=== PATIENT | male | born 1985 | race Caucasian/White ===

== ENCOUNTER 2021-04-25 14:54 | Inpatient (IN) | payer OTHER ==
[~2021-04-25] VITALS: Ht 180.3 cm; Wt 240.0 kg
[2021-04-25 16:21] LABS: HEMOGLOBIN 12.1 g/dl (13.5-17.5); MEAN CORPUSCULAR HEMOGLOBIN 26.7 pg (27.0-33.0); MEAN CORPUSCULAR HGB CONC 32.7 g/dl (32.0-36.5); MEAN CORPUSCULAR VOLUME 81.7 fl (80.0-96.0); PLATELET COUNT, AUTOMATED 214 10^3/uL (150-450); RED BLOOD COUNT 4.53 10^6/uL (4.30-6.10); WHITE BLOOD COUNT 6.5 10^3/uL (4.0-10.0)
[2021-04-25 16:36] LABS: AMPHETAMINES LEVEL URINE NEGATIVE (NEGATIVE); BARBITURATES URINE NEGATIVE (NEGATIVE); BENZODIAZEPINES URINE NEGATIVE (NEGATIVE); CANNABINOIDS URINE NEGATIVE (NEGATIVE); COCAINE METABOLITE URINE NEGATIVE (NEGATIVE); METHADONE URINE NEGATIVE (NEGATIVE); OPIATES URINE NEGATIVE (NEGATIVE); PHENCYCLIDINE URINE NEGATIVE (NEGATIVE)
[2021-04-25 16:58] LABS: ACETAMINOPHEN LEVEL < 2.0 UG/ML (10.0-30.0); ALBUMIN 3.7 GM/DL (3.2-5.2); ALT/SGPT 40 U/L (12-78); BILIRUBIN,DIRECT 0.1 MG/DL (0.0-0.2); BILIRUBIN,TOTAL 0.5 MG/DL (0.2-1.0); BLOOD UREA NITROGEN 22 MG/DL (7-18); CALCIUM LEVEL 8.4 MG/DL (8.5-10.1); CARBON DIOXIDE LEVEL 27 MEQ/L (21-32); CHLORIDE LEVEL 106 MEQ/L (98-107); CREATININE FOR GFR 1.28 MG/DL (0.70-1.30); ETHYL ALCOHOL (ETHANOL) 0.003 % (0.000-0.010); GLOMERULAR FILTRATION RATE > 60.0 (>60); GLUCOSE, FASTING 94 MG/DL (70-100); POTASSIUM SERUM 4.1 MEQ/L (3.5-5.1); SALICYLATE LEVEL < 1.7 MG/DL (5.0-30.0); SODIUM LEVEL 140 MEQ/L (136-145); TOTAL PROTEIN 6.5 GM/DL (6.4-8.2)
[2021-04-26] MEDS ORDERED: HOME MED LIST COMPLETE! XX SCH (01:55)
[2021-04-26 02:10] LABS: RSV AMPLIFICATION NEGATIVE (NEGATIVE)
[2021-04-26] MEDS ORDERED: MOM 30ML SUSPENSION UDC PO PRN (02:15)
[2021-04-26] MEDS ORDERED: hydrOXYzine 10 MG TAB PO PRN (02:15)
[2021-04-26] MEDS ORDERED: MAALOX 30 ML SUSP *UDC PO PRN (02:15)
[2021-04-26] MEDS ORDERED: traZODone 50 MG TAB PO PRN (02:15)
[2021-04-26] MEDS ORDERED: ACETAMINOPHEN TAB 650MG DOSE (2X325MG) PO PRN (02:15)
[2021-04-26 04:07] VITALS: BP 130/78
[2021-04-26 06:00] VITALS: BP 176/76
[2021-04-26] MEDS: SERTRALINE HCL 50 MG TAB PO SCH (09:56)
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
[2021-04-26 19:05] VITALS: BP 138/85
[2021-04-27 06:00] VITALS: BP 117/67
[2021-04-27] MEDS: SERTRALINE HCL 50 MG TAB PO SCH (09:48)
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
[2021-04-27 16:10] LABS: BILIRUBIN,DIRECT 0.1 MG/DL (0.0-0.2); BILIRUBIN,TOTAL 0.3 MG/DL (0.2-1.0); CHOLESTEROL RISK RATIO 4.645 (<5); TOTAL PROTEIN 7.3 GM/DL (6.4-8.2)
[2021-04-27 18:35] VITALS: BP 158/75
[2021-04-28 06:15] VITALS: BP 115/64
[2021-04-28] MEDS: SERTRALINE HCL 50 MG TAB PO SCH (08:44)
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
[2021-04-28 16:27] VITALS: BP 135/60
[2021-04-29 05:57] VITALS: BP 126/67
[2021-04-29] MEDS: SERTRALINE HCL 50 MG TAB PO SCH (08:30)
--- NOTE | 2021-04-29 12:41 | MHIPNPDOC ---
[facility] Progress Note Progress Note DATE OF SERVICE: 04/25/21 LATE ENTRY: 04/29/21 This content writer discussed the patient's case with ED staff member, Skyla Zarate, and [facility] because the patient presented with suicidal ideation and multiple risks factors which made him vulnerable. Vital Signs Vital Signs Date Time Temp Pulse Resp B/P (MAP) Pulse Ox O2 Delivery O2 Flow Rate FiO2 04/29/21 08:50 Room Air 04/29/21 05:57 97.2 62 16 126/67 (86) 98 Current Medications Current Medications Medications (Trade) Dose Ordered Sig/Odette Route PRN Reason Start Time Stop Time Status Last Admin Dose Admin Acetaminophen (Tylenol Tab) 650 mg Q6HP PRN PO HEADACHE or MILD DISCOMFORT 04/26/21 02:15 Al Hydrox/Mg Hydrox/Simethicone (Mylanta) 30 ml Q4HP PRN PO HEARTBURN/INDIGESTION 04/26/21 02:15 Home Med (Home Med List Complete!) ASDIRECTED XX 04/26/21 01:55 04/26/21 01:55 DC Hydroxyzine HCl (Atarax) 10 mg Q6HP PRN PO ANXIETY/AGITATION 04/26/21 02:15 Magnesium Hydroxide (Milk Of Magnesia) 30 ml DAILYPRN PRN PO CONSTIPATION 04/26/21 02:15 Sertraline HCl (Zoloft) 50 mg DAILY PO 04/26/21 09:00 04/29/21 08:30 Trazodone HCl (Desyrel) 50 mg QHSP PRN PO INSOMNIA 04/26/21 02:15 Allergies Coded Allergies: No Known Allergies (Unverified , 04/25/21) SUSAN CEVALLOS MD Apr 29, 2021 12:41
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
[2021-04-29 16:09] VITALS: BP 128/60
[2021-04-30 06:46] VITALS: BP 117/69
[2021-04-30] MEDS: SERTRALINE HCL 50 MG TAB PO SCH (08:25)
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
[2021-04-30 16:16] VITALS: BP 134/69
[2021-05-01 07:09] VITALS: BP 114/59
[2021-05-01] MEDS: SERTRALINE HCL 50 MG TAB PO SCH (08:33)
[2021-05-01] MEDS ORDERED: SERT50TA29 PO (09:37)
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
== END 2021-05-01 12:01 | disposition home or self-care (01) | DRG 881 ==
LOC: M ED 14:54 → M ED INP 14:55 → M PSY 04-26 03:50
PROVIDERS: ADMIT Student in an Organized Health Care Education/Training Program; ATTEND Student in an Organized Health Care Education/Training Program
DX: F32.9 Major depressive disorder, single episode, unspecified (principal); Z63.5 Disruption of family by separation and divorce

== ENCOUNTER 2025-05-19 08:15 | Emergency (ER) | payer OTHER ==
[~2025-05-19] VITALS: Ht 180.3 cm; Wt 127.0 kg
[~2025-05-19 08:15] MED LIST: SERT50TA29 PO
[2025-05-19] MEDS ORDERED: IBUPPOW25 (08:38)
[2025-05-19] MEDS ORDERED: METHOCARBAMOL 1,000 MG/10 ML VIAL IM ONE (10:20)
[2025-05-19] MEDS: METHOCARBAMOL 1,000 MG/10 ML VIAL IV ONE (10:44)
[2025-05-19] MEDS: ACETAMINOPHEN 500 MG TAB PO ONE (10:45)
[2025-05-19] MEDS: LIDOCAINE 5% PATCH TD ONE (10:46)
[2025-05-19 11:38] VITALS: BP 139/80; TEMP 97.2; O2SAT 97
[2025-05-19] MEDS ORDERED: MEDR4PAK PO (12:27)
[2025-05-19] MEDS ORDERED: METH-1164 PO (12:27)
[2025-05-19] MEDS ORDERED: LIDO1ADH93 TD (12:27)
[2025-05-20] MEDS ORDERED: BUSP15TA47 PO (09:39)
[2025-05-20] MEDS ORDERED: BUPR-766 PO (09:39)
[2025-05-20] MEDS ORDERED: METH-1164 PO (10:45)
[2025-05-20] MEDS ORDERED: SERT50TA29 PO (10:45)
== END 2025-05-19 12:35 | disposition home or self-care (01) ==
LOC: M ED 08:15
DX: S39.012A Strain of muscle, fascia and tendon of lower back, initial encounter (principal); S33.5XXA Sprain of ligaments of lumbar spine, initial encounter; M54.42 Lumbago with sciatica, left side; X58.XXXA Exposure to other specified factors, initial encounter; E11.9 Type 2 diabetes mellitus without complications; M77.30 Calcaneal spur, unspecified foot; M76.819 Anterior tibial syndrome, unspecified leg; Z79.899 Other long term (current) drug therapy; Y92.9 Unspecified place or not applicable; Y93.9 Activity, unspecified; Y99.9 Unspecified external cause status
CPT/HCPCS: 96374; 99284; J2800; J2919

== ENCOUNTER 2025-05-20 09:23 | Emergency (ER) | payer OTHER ==
[~2025-05-20] VITALS: Ht 180.3 cm; Wt 127.3 kg
[~2025-05-20 09:23] MED LIST changes: +IBUPPOW25; +LIDO1ADH93 TD; +MEDR4PAK PO; +METH-1164 PO
[2025-05-20] MEDS ORDERED: BUPR-766 PO (09:39)
[2025-05-20] MEDS ORDERED: BUSP15TA47 PO (09:39)
[2025-05-20 10:04] LABS: PLATELET COUNT, AUTOMATED 238 10^3/uL (150-450)
[2025-05-20 10:26] LABS: AMPHETAMINES LEVEL URINE NEGATIVE (NEGATIVE); BARBITURATES URINE NEGATIVE (NEGATIVE); BENZODIAZEPINES URINE NEGATIVE (NEGATIVE); CANNABINOIDS URINE NEGATIVE (NEGATIVE); COCAINE METABOLITE URINE NEGATIVE (NEGATIVE); METHADONE URINE NEGATIVE (NEGATIVE); OPIATES URINE NEGATIVE (NEGATIVE); PHENCYCLIDINE URINE NEGATIVE (NEGATIVE)
[2025-05-20 10:27] LABS: ETHYL ALCOHOL (ETHANOL) < 0.003 % (0.000-0.010)
[2025-05-20 10:29] LABS: ALT/SGPT 99 U/L (7.0-40); AST/SGOT 62 U/L (<34); CALCIUM LEVEL 10.0 MG/DL (8.5-10.1); CARBON DIOXIDE LEVEL 24 MMOL/L (20-31); CHLORIDE LEVEL 102 MMOL/L (98-107); CREATININE FOR GFR 0.99 MG/DL (0.70-1.30); GLOMERULAR FILTRATION RATE > 90.0 (>60); POTASSIUM SERUM 4.4 MMOL/L (3.5-5.1); SALICYLATE LEVEL < 3.0 MG/DL (<30); SODIUM LEVEL 140 MMOL/L (136-145)
[2025-05-20] MEDS ORDERED: METH-1164 PO (10:45)
[2025-05-20] MEDS ORDERED: HOME MED LIST COMPLETE! XX SCH (10:45)
[2025-05-20] MEDS ORDERED: SERT50TA29 PO (10:45)
[2025-05-20 15:13] VITALS: BP 155/87; TEMP 97.9; O2SAT 98
== END 2025-05-20 15:23 | disposition home or self-care (01) ==
LOC: M ED 09:23
DX: F43.0 Acute stress reaction (principal); F32.A Depression, unspecified; E66.9 Obesity, unspecified; M54.50 Low back pain, unspecified; Z79.899 Other long term (current) drug therapy